=== PATIENT | male | born 1965 | race Caucasian/White ===

== ENCOUNTER → 2023-01-26 00:09 | Outpatient (CLI) | payer BC, SELFPAY ==
--- NOTE | 2023-01-26 07:45 | DI.RAD_ITS ---
Exam(s) XR FOOT RT COMPLETE EXAM: XR FOOT RT COMPLETE CLINICAL HISTORY: Rt foot pain,[id number]. TECHNIQUE: 2D digital imaging was performed of the right foot. Three images were obtained. AP, obl ique and lateral views were obtained. COMPARISON: No exams were available for comparison FINDINGS: BONES: No acute fracture is present. No bony destructive lesion is seen. There is a plantar calcaneal spur. JOINTS: No dislocation present. Osteophytes are seen at the 1st and 2nd metatarsophalangeal joints. SOFT TISSUE: Normal. IMPRESSION: No acute abnormality. DATA REPOSITORY: RADIATION DOSE DELIVERED:
== END ==
PROVIDERS: Visit Provider Podiatrist
DX: M79.671 Pain in right foot (principal)
CPT/HCPCS: 73630